=== PATIENT | male | born 1965 | race Caucasian/White ===

== ENCOUNTER 2017-12-05 10:26 | Day surgery (SDC) | payer OTHER ==
[2017-12-04 11:57] VITALS: BMI 32.5
[2017-12-05] MEDS ORDERED: cefOXitin 2 GM VIAL ONE (10:52)
[2017-12-05] MEDS ORDERED: Sodium Chloride 0.9% 100 ML ONE (10:52)
[2017-12-05] MEDS ORDERED: Ketorolac Tromethamine 30 MG/ML VIAL ONE (10:52)
[2017-12-05 11:08] LABS: #Eosinphils 0.2 thou/uL (0.0-0.7); #Monocytes 0.5 thou/uL (0.11-0.59); #Neutrophils 3.9 thou/uL (1.40-6.50); %Basophils 0.4 % (0.0-1.0); %Eosinophils 2.7 % (0.0-10.0); %Lymphocytes 30.7 % (21.0-51.0); %Monocytes 7.5 % (0.0-10.0); %Neutrophils 58.6 % (42.0-75.0); Hemoglobin 12.8 g/dL (14.0-18.0); Mean Corpuscular HGB CONC 33.6 g/dL (32.0-36.0); Mean Corpuscular Hemoglobin 29.3 pg (27.0-31.0); Mean Corpuscular Volume 87.2 fL (78.0-98.0); Mean Platelet Volume 7.4 fL (7.4-10.4); Platelet Count 192 thou/uL (130-400); RBC Distribution Width 13.1 % (11.5-14.5); Red Blood Cell (RBC) Count 4.36 mill/uL (4.70-6.10); White Blood Cell (WBC) Count 6.6 thou/uL (4.8-10.8)
[2017-12-05] MEDS ORDERED: Fleet Enema 133 ML BOT PR SCH (11:15)
[2017-12-05 11:27] LABS: Anion Gap 8 mmol/L (10-20); BUN (Urea Nitrogen) 8 mg/dL (8.4-25.7); Calc. Creatinine Clearance 151 mL/min (70-130); Calcium 9.3 mg/dL (7.8-10.44); Carbon Dioxide 29 mmol/L (22-29); Chloride 107 mmol/L (98-107); Estimated GFR-MDRD 87; Glucose 97 mg/dL (70-105); Potassium 4.3 mmol/L (3.5-5.1); Sodium 140 mmol/L (136-145)
[2017-12-05] MEDS ORDERED: Midazolam HCl 2 mg/2 ml Vial ONE ×2 (13:09→13:19)
[2017-12-05] MEDS ORDERED: Promethazine HCl 25 MG/ML VIAL ONE (13:19)
[2017-12-05] MEDS ORDERED: HYDROmorphone 0.5 MG/0.5 ML SYRINGE ONE (13:19)
[2017-12-05] MEDS ORDERED: Bupivacaine/Epinephrine 0.25% 30 ML VIAL ONE (13:22)
[2017-12-05] MEDS ORDERED: Lidocaine 2% Jelly 5 ML TUBE ONE (13:22)
[2017-12-05] MEDS ORDERED: PROPOFOL 200 MG/20 ML VIAL ONE (13:38)
[2017-12-05] MEDS ORDERED: Dexamethasone 20 MG/5 ML VIAL ONE (13:38)
[2017-12-05] MEDS ORDERED: Glycopyrrolate 0.2 MG/ML 5 ML SYRINGE ONE (13:38)
[2017-12-05] MEDS ORDERED: Lidocaine 1% PF 5 ML VIAL ONE (13:38)
[2017-12-05] MEDS ORDERED: Ondansetron HCl/PF 4 MG/2 ML Vial ONE (13:38)
[2017-12-05] MEDS ORDERED: Fentanyl 100 MCG/2 ML VIAL ONE (14:05)
--- NOTE | 2017-12-06 10:36 | OP ---
DATE OF PROCEDURE: 12/05/2017 PREOPERATIVE DIAGNOSIS: Anorectal pain, suspected anal fissure. POSTOPERATIVE DIAGNOSES: Chronic anal fissure, internal hemorrhoids, internal/external hemorrhoidal complex, abnormal rectal mucosa. OPERATIONS PERFORMED: Rectal examination under anesthesia, left lateral internal sphincterotomy, ant erior fissurectomy, internal/external hemorrhoidectomy at about the 7 o'clock radian, excisional rect al mucosal biopsy of the posterior rectum several centimeters internally. SURGEON: Rebel Sharma M.D. ACCOUNT RELATIONSHIP MANAGER: Fe Mata, medical student. ANESTHESIA: General endotracheal. INDICATIONS: The patient is a morbidly obese, quadriplegic 52-year-old white male. He presented wit h a complaint of severe anorectal pain. He could not tolerate examination in the office and is there fore taken to the operating room for examination under anesthesia. He has been previously told that he has an anal fissure and this is suspected to be the source of his discomfort. DESCRIPTION OF OPERATION: Informed consent was obtained. The patient was taken to the operating roman m where general endotracheal anesthesia was obtained with the patient in supine position. He was the n placed into dorsal lithotomy using the Yellofin stirrups. The perianal area was prepped with Betad ine and draped in sterile fashion. Local anesthetic was infiltrated in a 4 quadrant intersphincteric fashion using 0.25% Marcaine with epinephrine. Examination was conducted of his rectum with both di gital examination and speculum examination. He was noted to have a fairly broad chronic anterior fis sure. He was noted to have a single dominant hemorrhoidal complex at about the 7 o'clock radian. He was also noted to have abnormal cobblestoning rectal mucosa. There was no other palpable or visible abnormality. I decided to proceed with the sphincterotomy that I discussed with him preoperatively. Local anesthe tic was infiltrated using 0.25% Marcaine with epinephrine overlying the left lateral internal sphinct er. A small skin incision was created. The sphincter was dissected with a hemostat and divided with electrocautery, ensuring adequate sphincter division. The cutaneous defect was then closed with a r unning locking suture of 3-0 Vicryl. Attention was then turned to the fissure. This was debrided anteriorly. As the defect was so wide ( about a cm), I closed this using a few interrupted sutures of 3-0 Vicryl. I then turned my attention to the hemorrhoid. This was again locally anesthetized. It was grasped a nd excised using a collin shaped incision. Care was taken to avoid underlying sphincter injury. Th e resulting hemorrhoidal mucosal defect was closed with a running locking suture of 3-0 Vicryl. Stpehanie sanders, I turned my attention to the abnormal rectal mucosa. This was tagged with a suture of 3-0 Vicry l. I then excised approximately 1 cm segment of the abnormal mucosa and submucosa. Hemostasis was o btained with electrocautery and the wound was closed again with a 3-0 Vicryl suture. Gelfoam was placed internally. Dry gauze was placed externally. There were no complications. The p atient tolerated the procedure well and was taken to recovery room in stable condition.
== END 2017-12-05 17:10 | disposition home or self-care (01) ==
LOC: SDC 10:26
PROVIDERS: ATTEND Specialist
PROC: 0DBQXZZ Excision of Anus, External Approach (ICD-10-PCS; principal; 2017-12-05)
PROC: 0D8R3ZZ Division of Anal Sphincter, Percutaneous Approach (ICD-10-PCS; principal; 2017-12-05)
PROC: 06BY3ZC Excision of Hemorrhoidal Plexus, Percutaneous Approach (ICD-10-PCS; principal; 2017-12-05)
PROC: 0DD Gastrointestinal System, Extraction (ICD-10-PCS; 2017-12-05)
DX: K64.4 Residual hemorrhoidal skin tags (principal); K64.8 Other hemorrhoids; D12.8 Benign neoplasm of rectum; K60.1 Chronic anal fissure; G82.50 Quadriplegia, unspecified; E66.01 Morbid (severe) obesity due to excess calories; Z68.32 Body mass index [BMI] 32.0-32.9, adult; Z79.899 Other long term (current) drug therapy; Z88.2 Allergy status to sulfonamides
CPT/HCPCS: 36415; 80048; 85025; 88304; 88305; J0131; J0694; J1100; J1170; J1885; J2001; J2250; J2405; J2550; J2704; J3010; J7050